=== PATIENT | male | born 1995 | race African-American/Black ===

== ENCOUNTER 2021-09-07 11:43 | Emergency (ER) | payer SELFPAY ==
[~2021-09-07] VITALS: Ht 177.8 cm; Wt 90.9 kg
[2021-09-07] MEDS ORDERED: INDERAL 20MG20 MG PO (12:15)
[2021-09-07 13:15] VITALS: BP 130/65; PULSE 71; TEMP 97.2
== END 2021-09-07 13:16 | disposition home or self-care (01) ==
LOC: COL.ER 11:43
DX: J06.9 Acute upper respiratory infection, unspecified (principal); J45.909 Unspecified asthma, uncomplicated; F41.9 Anxiety disorder, unspecified; Z20.822 Contact with and (suspected) exposure to COVID-19; Z79.899 Other long term (current) drug therapy